=== PATIENT | female | born 2000 | race Hispanic/Latino ===

== ENCOUNTER 2024-07-29 22:04 | Emergency (ER) | payer OTHER ==
[~2024-07-29] VITALS: Ht 162.6 cm; Wt 114.3 kg
[2024-07-29 22:12] VITALS: PULSE 105; RESP 18; TEMP 98.6
[2024-07-29 22:44] VITALS: BP 137/82; PULSE 105; RESP 18; TEMP 98.6; O2SAT 97
== END 2024-07-29 22:44 | disposition home or self-care (01) ==
LOC: FSED 22:19
DX: R55 Syncope and collapse (principal); R42 Dizziness and giddiness
CPT/HCPCS: 81003; 81025; 93005; 99282